=== PATIENT | female | born 1945 | race Caucasian/White ===

== ENCOUNTER 2018-06-02 07:42 | Observation (INO) ==
[2018-06-02] MEDS ORDERED: Mag Sulf 1 gm/100 ml Premix 100 ML IV.SIG ONE (07:45)
--- NOTE | 2018-06-02 07:55 | ED ---
HPI General Stated Complaint: SOB Source: patient Mode of arrival: ambulatory Limitations: no limitations History of Present Illness pcp mitzy.....patient c/o sob/cough prod of yellow green sputum over last 2 days, sob worsening and not responding to her home nebulizers, ems found patient with pulse ox 84% on room air....pulse ox increased to 99 with 2 breathing treatments and solumedrol 125mg iv. MD Complaint: shortness of breath and cough Onset (ago): day(s) (2) Context: other (worsening) Severity: moderate Consistency/Duration: constant Relieving factors: bronchodilators Exacerbating factors: nothing Known history of: COPD Associated symptoms: denies other symptoms Treatment prior to arrival: bronchodilator and other (ems provided solumedrol 125mg iv as well) Related Data Home oxygen amount: none Allergies Allergy/AdvReac Type Severity Reaction Status Date / Time No Known Allergies Allergy Uncoded 05/16/13 21:48 Review of Systems ROS: all other systems reviewed are negative PMFSH History History Provided By: Patient Social History Social History Recent Travel in [facility] within the Last 8 Weeks: No Recent Out of Country Travel within the Last 8 Weeks: No Exam Narrative Exam Narrative: GENERAL: Well-nourished, well-developed patient in no apparent distress. SKIN: Warm and dry. HEAD: Atraumatic. Normocephalic. EYES: Pupils equal and round. No scleral icterus. No injection or drainage. ENT: No nasal bleeding or discharge. Mucous membranes pink and moist. NECK: Trachea midline. No JVD. CARDIOVASCULAR: Tachycardic with regular rhythm. no rubs or gallops RESPIRATORY: Suprasternal accessory muscle use. Bilateral wheezing throughout , decreased tidal volume bilaterally GASTROINTESTINAL: Abdomen soft, non-tender, nondistended. No rebound or guarding MUSCULOSKELETAL: Extremities without clubbing, cyanosis, or edema. No obvious deformities. NEUROLOGICAL: Awake and alert. No obvious cranial nerve deficits. Motor grossly within normal limits. Five out of 5 muscle strength in the arms and legs. Normal speech. PSYCHIATRIC: Appropriate mood and affect; insight and judgment normal. Critical Care Time Critical Care Time: Yes Total Critical Care Time: 30 Attestation: Aggregate critical care time was 30 minutes. Time to perform other separately billable procedures was not included in the critical care time. My time did not include minutes spent treating any other patients simultaneously or on activities that did not directly contribute to the patient's treatment. The services I provided to this patient were to treat and/or prevent clinically significant deterioration such as intubation, respiratory failure and . I provided critical care services requiring my management, as noted below: Chart data review, documentation time, medication orders and management, vital sign assessments/reviewing monitor data, ordering and reviewing lab tests, ordering and interpreting/reviewing x-rays and diagnostic studies, care of the patient and discussion of the patient with the admitting physicians. Medical Decision Making MDM Narrative Medical Screen Exam Complete: Yes Emergency Medical Condition: Yes Differential Diagnosis Differential Diagnosis: Pneumonia versus pneumothorax versus pleural effusion versus COPD exacerbation versus STEMI Medical Records Medical records reviewed: Yes I reviewed the patient's medical records. Discharge Plan Discharge Disposition Patient Disposition: 30 Still Patient Discharge Condition Condition: Fair Discharge Details Diagnosis: Acute exacerbation of chronic obstructive pulmonary disease (COPD) Physicians Team ED Provider: Joseluis Rey Status ED Status: With Nurse
[2018-06-02 07:58] LABS: ABG Base Excess 0.7 mmol/L (-2-2); ABG PCO2 60 mmHg (38-42); ABG PO2 120 mmHg (61-120)
[2018-06-02 08:02] LABS: Baso # (Auto) 0.1 th/mm3 (0.0-0.2); Eos # (Auto) 0.8 th/mm3 (0.0-0.4); Eos % (Auto) 9.5 % (0.0-4.0); Hematocrit 42.8 % (35.0-46.0); Hemoglobin 13.5 gm/dL (11.6-15.3); Lymph # (Auto) 2.5 th/mm3 (1.0-4.8); Lymph % (Auto) 30.3 % (9.0-44.0); Mean Corpuscular HGB Conc 31.6 % (32.0-36.0); Mean Corpuscular Hemoglobin 29.5 pg (27.0-34.0); Mean Corpuscular Volume 93.2 fL (80.0-100.0); Mean Platelet Volume 8.3 fL (7.0-11.0); Mono # (Auto) 0.5 th/mm3 (0.0-0.9); Neut # (Auto) 4.5 th/mm3 (1.8-7.7); Neut % (Auto) 53.2 % (16.0-70.0); Platelet Count 245 th/mm3 (150-450); Red Blood Count 4.59 mil/mm3 (4.00-5.30); Red Cell Distribution Width 14.2 % (11.6-17.2); White Blood Count 8.4 th/mm3 (4.0-11.0)
[2018-06-02 08:07] LABS: Chloride 108 meq/L (98-107); Sodium 144 meq/L (136-145)
[2018-06-02 08:10] LABS: Albumin 3.5 g/dL (3.4-5.0); Anion Gap 6 meq/L (5-15); Calcium 8.4 mg/dL (8.5-10.1); Carbon Dioxide 29.8 meq/L (21.0-32.0); Glucose,Random 174 mg/dL (74-106)
[2018-06-02 08:11] LABS: Blood Urea Nitrogen 45 mg/dL (7-18)
[2018-06-02 08:13] LABS: Alanine Aminotransferase 18 U/L (10-53); Aspartate Aminotransferase 14 U/L (15-37)
[2018-06-02 08:14] LABS: Glomerular Filtration Rate 18 mL/min (>89)
[2018-06-02 08:15] LABS: Total Protein 8.4 g/dL (6.4-8.2)
[2018-06-02 08:16] LABS: Alkaline Phosphatase 100 U/L (45-117)
--- NOTE | 2018-06-02 08:24 | XR ---
EXAM DATE: 06/02/2018 8:09 AM EDT AGE/SEX: 72 years / Female INDICATIONS: Short of breath CLINICAL DATA: This is the patient's initial encounter. Patient reports that signs and symptoms have been present for 3 days and indicates a pain score of 0/10. MEDICAL/SURGICAL HISTORY: Chronic obstructive pulmonary disease. None. COMPARISON: No prior exams available for comparison. FINDINGS: A single AP view of the chest demonstrates the lungs to be symmetrically aerated without evidence of mass, infiltrate or effusion. The cardiomediastinal contours are unremarkable. Osseous structures a re intact. CONCLUSION: No acute cardiopulmonary disease. Electronically signed by: Lew Whitley MD 06/02/2018 8:23 AM EDT
[2018-06-02 08:35] LABS: Creatine Kinase 93 U/L (26-192)
[2018-06-02] MEDS ORDERED: Bisacodyl 10 MG Supp RECTAL PRN (10:32)
[2018-06-02] MEDS ORDERED: Acetaminophen 325 MG Tablet PO PRN (10:32)
[2018-06-02 10:43] LABS: ABG PCO2 54 mmHg (38-42); ABG PO2 70 mmHg (61-120)
[2018-06-02] MEDS ORDERED: Dextrose 50% in Water 50 ML Vial IV.PUSH PRN (12:28)
[2018-06-02] MEDS: MethylPREDNISolone Sod Succinate Inj 40 MG/ML Vial IV.PUSH SCH ×3 (12:41→22:46)
[2018-06-02] MEDS: Insulin NovoLOG Aspart Correctional Sugar Inj SQ SCH ×3 (13:40→22:45)
--- NOTE | 2018-06-02 14:25 | P.HP ---
History of Present Illness Primary Care Physician: Bernard Hill MD Chief Complaint: Shortness of breath and dyspnea History of Present Illness: 72-year-old female with known history of hypertension, hypovolemia, chronic obstructive pulmonary disease, diabetes, history of pulmonary emboli who presented the hospital because of worsening shortness of breath and dyspnea. Patient states that her symptoms started on Tuesday evening where she started developing shortness of breath, wheezing. She did use for nebulizer treatments with only minimal relief. Over the next couple days she progressively got worse where she cannot perform any activity due to her significant shortness of breath. Patient continued to have significant sputum production which was yellow in coloration. She did not contact her primary medical doctor's office because she states that they only tell her to go to the ER. Because her breathing got severely worse if she cannot function she came to the emergency department for evaluation. Patient was found to have acute hypercapnic respiratory failure was placed on BiPAP in the emergency department. Patient took the BiPAP off after approximate 1 hour she was not tolerating it well. And just 1 hour that she used it was correcting her hypercapnia. At time evaluating patient she was sitting up in the bed eating lunch. She states that she is feeling much better. According to respiratory therapy she did have some mild lethargy before BiPAP but after the use of the BiPAP her mentation improved. Patient denies any runny nose, fever, chills. Patient denies any exposure to any chemicals. - Diagnosis (1) Acute exacerbation of chronic obstructive pulmonary disease (COPD) (2) Acute hypercapnic respiratory failure Review of Systems All other systems reviewed negative except as stated in HPI Respiratory: Reports change in phlegm color, Reports shortness of breath, Reports shortness of breath with activity, Reports wheezing PMFSH - History History Provided By: Patient - Medical History Medical History: Medical History (Last Updated 06/02/18 @ 14:25 by CONNOR Sullivan) COPD (chronic obstructive pulmonary disease) Chronic kidney disease, stage IV (severe) Diabetes Hypertension Pulmonary embolism - Surgical History Surgical History: Surgical History (Last Updated 06/02/18 @ 14:19 by CONNOR Sullivan) No pertinent past surgical history - Family History Family History: Family History (Last Updated 06/02/18 @ 14:19 by CONNOR Sullivan) Mother History of heart disease Father History of heart disease - Tobacco History Second Hand Smoke Exposure: No Tobacco Use In Past 30 Days: No Smoking Status: Former smoker Number of Pack Years (if former smoker): 120 (Patient quit smoking in 2011) - Alcohol History How Often Do You Have a Drink Containing Alcohol: Monthly or less - Substance Use History Substance History: No History of Abuse - Travel History Recent Travel in the [place] Within the Last 8 Weeks: No Recent Travel Out of the Country Within the Last 8 Weeks: No - Immunization History Tetanus Immunization: Unsure Hx Influenza Vaccine This Season: No Medications and Allergies Active Medications: Active Medications Acetaminophen (Tylenol) 650 mg PO Q4H PRN PRN Reason: Fever, headache, pain 1-5 Al Hydroxide/Mg Hydroxide (Milk Of Magnesia Liq) 30 ml PO Q12H PRN PRN Reason: Mild Constipation Albuterol (Duoneb Neb (Renee)) 1 ampul NEB Q6HR WHILE AWAKE NEB RENEE Albuterol (Duoneb Neb (Prn)) 1 ampul NEB Q2HR NEB PRN PRN Reason: DYSPNEA Bisacodyl (Dulcolax Supp) 10 mg RECTAL DAILY PRN PRN Reason: SEVERE CONSITIPATION Budesonide/Formoterol Fumarate (Symbicort 160/4.5 Mcg Inh) 1 puff INH BID RENEE Dextrose (D50w Vial) 50 ml IV.PUSH UNSCH PRN PRN Reason: PER HYPOGLYCEMIA PROTOCOL Glucagon (Glucagon Inj) 1 mg OTHER PRN PRN PRN Reason: for Hypoglycemia Protocol Guaifenesin (Mucinex Er) 600 mg PO BID RENEE Levofloxacin/Dextrose (Levaquin 750 Mg Premix Inj) 150 mls @ 100 mls/hr IV.SIG Q48H [facility] Last Infusion: 06/02/18 13:38 Dose: Infused Insulin Aspart (Novolog Insulin Correctional Sugar Inj) 0 unit SQ ACHS RENEE; Protocol Last Admin: 06/02/18 13:40 Dose: 3 unit Insulin Detemir (Levemir Inj) 10 unit SQ HS RENEE Lactulose (Lactulose Liq) 30 ml PO DAILY PRN PRN Reason: SEVERE CONSITIPATION Methylprednisolone Sodium Succinate (Solumedrol Inj) 40 mg IV.PUSH Q6H RENEE Last Admin: 06/02/18 12:41 Dose: 40 mg Sennosides (Senokot) 17.2 mg PO Q12H PRN PRN Reason: Moderate Constipation Allergies Allergy/AdvReac Type Severity Reaction Status Date / Time No Known Allergies Allergy Unverified 06/02/18 07:59 Home Medications Medication Instructions Recorded Confirmed Type budesonide 0.5 mg INHALATION Q12H 06/02/18 06/02/18 History furosemide 20 mg PO DAILY 06/02/18 06/02/18 History insulin glargine [Basaglar KwikPen 13 unit SUB-Q DAILY 06/02/18 06/02/18 History U-100 Insulin] ipratropium-albuterol 3 ml INHALATION QID 06/02/18 06/02/18 History warfarin See Label Instructions .ROUTE 06/02/18 06/02/18 History .COMPLEX warfarin See Label Instructions .ROUTE 06/02/18 06/02/18 History .COMPLEX Exam Vital signs: Vital Signs 06/02/18 07:49 06/02/18 08:00 06/02/18 08:02 Temperature 98.0 F Pulse Rate 128 H 122 H Respiratory Rate 22 Blood Pressure 149/81 H Pulse Oximetry 99 98 99 06/02/18 08:18 06/02/18 09:44 06/02/18 09:45 Temperature Pulse Rate 118 H Respiratory Rate 20 Blood Pressure 142/60 H Pulse Oximetry 100 94 L 94 L 06/02/18 10:43 06/02/18 11:24 Temperature Pulse Rate 106 H 112 H Respiratory Rate 20 20 Blood Pressure 123/61 Pulse Oximetry 95 Intake & Output 06/01/18 06/02/18 06/02/18 18:59 06:59 18:59 Intake Total 250 / 250 Balance 250 / 250 Weight 77.111 kg Intake: IV 250 / 250 Levaquin 750 mg Premix Inj 150 150 / 150 ML @ 100 mls/hr IV.SIG Q48H RENEE Rx#:[id number] Magnesium Sulfate 1 gm/D5W 100 100 / 100 ml Premix 100 ML @ 100 mls/hr IV.SIG ONCE ONE Rx#:[id number] Narrative: GENERAL: Well-developed, well-nourished, in no acute distress. alert and orientated HEENT: Head is normocephalic without any lesions or masses noted. Facial features are symmetric. Eyes: Pupils equal round reactive to light. Extraocular muscles are intact. Conjunctivae were clear. Oropharyngeal: Pharynx without any erythema edema. Tongue is midline without deviation. Buccal mucosa is moist without any masses or lesions NECK: Supple without any masses. Trachea midline no deviation. No JVD, no bruits are appreciated CARDIAC: Regular rhythm, regular rate. S1/S2 are heard. No murmurs gallops or rubs. LUNGS: Clear to auscultation bilaterally. Scattered wheezes noted throughout bilateral lung baig, no rhonchi or rales. No use of accessory muscles on inspiration or expiration. ABDOMEN: Soft, nontender. Nondistended. Bowel sounds heard in all 4 quadrants. No organomegaly or masses. Negative rebound, negative guarding EXTREMITIES: No edema, pulses are equal bilaterally. No cyanosis or clubbing NEUROLOGY: Mood and affect appear appropriate. Cranial nerves II through XII grossly intact. Muscle strength 5/5 in upper and lower extremities bilaterally. Deep tendon reflexes are 2+ in upper and lower extremities bilaterally. Results - Labs CBC & Chem 7: 06/02/18 07:50 06/02/18 07:50 Labs: Laboratory Results - last 24 hr 06/02/18 06/02/18 06/02/18 07:45 07:50 07:50 CBC w Diff Auto diff final WBC 8.4 RBC 4.59 Hgb 13.5 Hct 42.8 MCV 93.2 MCH 29.5 MCHC 31.6 L RDW 14.2 Plt Count 245 MPV 8.3 Neut % (Auto) 53.2 Lymph % (Auto) 30.3 Coryell % (Auto) 6.0 Eos % (Auto) 9.5 H Baso % (Auto) 1.0 Neut # (Auto) 4.5 Lymph # (Auto) 2.5 [place]ell # (Auto) 0.5 Eos # (Auto) 0.8 H Baso # (Auto) 0.1 WBC Differential . Differential Comment . Puncture Site Left brachial Patient Temperature 98.6 O2 Saturation 96 ABG pH 7.27 L* ABG pCO2 60 H* ABG pO2 120 ABG HCO3 27 H ABG O2 Content 18.2 ABG Base Excess 0.7 ABG Methemoglobin 1.2 Jean Claude Test Y Hemoglobin 13.3 Carboxyhemoglobin 1.1 O2 Delivery Device Nasal cannula Liter Flow 3.00 Inspired O2 21 Critical Value Yes Sodium 144 Potassium 4.0 Chloride 108 H Carbon Dioxide 29.8 Anion Gap 6 BUN 45 H Creatinine 2.60 H Estimated GFR 18 L POC Glucose Random Glucose 174 H Calcium 8.4 L Total Bilirubin 0.3 AST 14 L ALT 18 Alkaline Phosphatase 100 Total Creatine Kinase 93 Troponin I Less than 0.02 L B-Natriuretic Peptide Total Protein 8.4 H Albumin 3.5 06/02/18 06/02/18 06/02/18 07:50 10:40 12:13 CBC w Diff WBC RBC Hgb Hct MCV MCH MCHC RDW Plt Count MPV Neut % (Auto) Lymph % (Auto) [place] % (Auto) Eos % (Auto) Baso % (Auto) Neut # (Auto) Lymph # (Auto) [place] # (Auto) Eos # (Auto) Baso # (Auto) WBC Differential Differential Comment Puncture Site Left brachial Patient Temperature 98.6 O2 Saturation 92 ABG pH 7.31 L ABG pCO2 54 H* ABG pO2 70 ABG HCO3 27 H ABG O2 Content 16.9 ABG Base Excess 1.0 ABG Methemoglobin 1.2 Jean Claude Test Hemoglobin 13.0 Carboxyhemoglobin 1.2 O2 Delivery Device Nasal cannula Liter Flow 1.00 Inspired O2 Critical Value Yes Sodium Potassium Chloride Carbon Dioxide Anion Gap BUN Creatinine Estimated GFR POC Glucose 238 H Random Glucose Calcium Total Bilirubin AST ALT Alkaline Phosphatase Total Creatine Kinase Troponin I B-Natriuretic Peptide 31 Total Protein Albumin - Imaging Impressions Chest X-Ray 06/02/18 07:45 CONCLUSION: No acute cardiopulmonary disease. Caprini VTE Risk Assessment Caprini VTE Risk Assessment: Moderate/High Risk (score >= 2) Caprini Risk Assessment Model: Point Value = 1 Point Value = 2 Point Value = 3 Point Value = 5 Age 41-60 Minor surgery BMI > 25 kg/m2 Swollen legs Varicose veins or History of unexplained or recurrent spontaneous Oral contraceptives or hormone replacement Sepsis (< 1 month) Serious lung disease, including pneumonia (< 1 month) Abnormal pulmonary function Acute myocardial infarction Congestive heart failure (< 1 month) History of inflammatory bowel disease Medical patient at bed rest Age 61-74 Arthroscopic surgery Major open surgery (> 45 min) Laparoscopic surgery (> 45 min) Malignancy Confined to bed (> 72 hours) Immobilizing plaster cast Central venous access Age >= 75 History of VTE Family history of VTE Factor V Leiden Prothrombin [id number] Lupus anticoagulant Anticardiolipin antibodies Elevated serum homocysteine Heparin-induced thrombocytopenia Other congenital or acquired thrombophilia Stroke (< 1 month) Elective arthroplasty Hip, pelvis, or leg fracture Acute spinal cord injury (< 1 month) Prophylaxis Regimen: Total Risk Factor Score Risk Level Prophylaxis Regimen 0-1 Low Early ambulation 2 Moderate Order ONE of the following: *Sequential Compression Device (SCD) *Heparin 5000 units SQ BID 3-4 Higher Order ONE of the following medications: *Heparin 5000 units SQ TID *Enoxaparin/Lovenox 40 mg SQ daily (WT < 150 kg, CrCl > 30 mL/min) *Enoxaparin/Lovenox 30 mg SQ daily (WT < 150 kg, CrCl > 10-29 mL/min) *Enoxaparin/Lovenox 30 mg SQ BID (WT < 150 kg, CrCl > 30 mL/min) AND/OR *Sequential Compression Device (SCD) 5 or more Highest Order ONE of the following medications: *Heparin 5000 units SQ TID (Preferred with Epidurals) *Enoxaparin/Lovenox 40 mg SQ daily (WT < 150 kg, CrCl > 30 mL/min) *Enoxaparin/Lovenox 30 mg SQ daily (WT < 150 kg, CrCl > 10-29 mL/min) *Enoxaparin/Lovenox 30 mg SQ BID (WT < 150 kg, CrCl > 30 mL/min) AND *Sequential Compression Device (SCD) Assessment and Plan - Assessment (1) Acute exacerbation of chronic obstructive pulmonary disease (COPD) Code(s): J44.1 - Chronic obstructive pulmonary disease with (acute) exacerbation Status: Acute (2) Acute hypercapnic respiratory failure Code(s): J96.02 - Acute respiratory failure with hypercapnia Status: Acute - Plan Acute hypercapnic respiratory failure secondary to chronic obstructive pulmonary disease exacerbation. -Blood gas does indicate initial pH 7.27, PCO2 60, PO2 120, bicarb 27, O2 saturation 96 -Blood gas did show improvement after 1 hour of BiPAP -Would recommend continuation of BiPAP, 09/06/35 percent for at least another 3- 4 hours -Awaiting VQ scan -Continue Levaquin 750 mg every 48 hours -Continue Solu-Medrol 40 mg IV every 6 hours -Continue nebulizer every 6 hours while awake and every 2 hours as needed -Start budesonide 1 inhalation twice daily -Start guaifenesin 600 mg twice daily -Obtain sputum culture, influenza testing, pro-calcitonin level Diabetes -Diabetic diet -Accu-Cheks with sliding scale insulin Chronic kidney disease stage IV -Patient does have history of dialysis -Continue monitor renal function -Avoid nephrotoxins hypertension, history of pulmonary emboli -Patient is currently on Coumadin -We will need to obtain PT/INR in order to evaluate if patient is therapeutic -Continue home medications DVT prevention -Patient is on Coumadin, awaiting INR
--- NOTE | 2018-06-02 14:31 | NM ---
EXAM DATE: 06/02/2018 2:25 PM EDT AGE/SEX: 72 years / Female INDICATIONS: Dyspnea for one day. CLINICAL DATA: This is the patient's initial encounter. Patient reports that signs and symptoms have been present for 1 day and indicates a pain score of 0/10. MEDICAL/SURGICAL HISTORY: Chronic obstructive pulmonary disease. Diabetes mellitus type II. Hi story of pulmonary embolus. . IVC filter. COMPARISON: No prior exams available for comparison. DOSE: 1.0 mCi Tc99m DTPA aerosol 8.5 mCi Tc99m MAA IV TECHNIQUE: Following five minutes of tidal breathing of DTPA aerosol, planar images of the lungs wer e performed in eight projections. The patient was then injected with MAA, and eight-view perfusion s can was performed. FINDINGS: There is matched subsegmental defects in the right lower lobe. The remainder of examination is unrema rkable. CONCLUSION: 1. Low probability of pulmonary embolism Electronically signed by: Lew Whitley MD 06/02/2018 2:29 PM EDT
[2018-06-02] MEDS: Budesonide-Formoterol 160/4.5 MCG 6 GM Inhaler INH SCH ×2 (14:52→22:46)
[2018-06-02] MEDS: guaiFENesin 600 MG ER Tablet PO SCH ×2 (14:52→22:45)
[2018-06-02 15:07] LABS: Activated Partial Thrombo Time 39.7 sec (24.3-30.1); INR 1.8 Ratio; Prothrombin Time 17.8 sec (9.8-11.6)
[2018-06-02] MEDS ORDERED: Insulin Detemir Inj 1,000 UNIT/10 ML Vial SQ SCH (21:00)
[2018-06-03] MEDS: MethylPREDNISolone Sod Succinate Inj 40 MG/ML Vial IV.PUSH SCH (06:12)
[2018-06-03 08:07] LABS: Baso % (Auto) 0.1 % (0.0-2.0); Hematocrit 40.1 % (35.0-46.0); Hemoglobin 13.1 gm/dL (11.6-15.3); Lymph # (Auto) 0.7 th/mm3 (1.0-4.8); Mean Corpuscular HGB Conc 32.6 % (32.0-36.0); Mean Corpuscular Hemoglobin 29.4 pg (27.0-34.0); Mean Corpuscular Volume 90.2 fL (80.0-100.0); Mean Platelet Volume 9.2 fL (7.0-11.0); Mono # (Auto) 0.2 th/mm3 (0.0-0.9); Mono % (Auto) 1.7 % (0.0-8.0); Neut # (Auto) 13.8 th/mm3 (1.8-7.7); Neut % (Auto) 93.2 % (16.0-70.0); Platelet Count 268 th/mm3 (150-450); Red Blood Count 4.44 mil/mm3 (4.00-5.30); White Blood Count 14.6 th/mm3 (4.0-11.0)
--- NOTE | 2018-06-03 08:12 | P.PN ---
Subjective Interval history: 72-year-old female who is seen and examined today for follow-up on acute hypercapnic respiratory failure, COPD exacerbation. Patient states that she is doing much better. She did not get much sleep last night. However she does feel much improved with her respiratory status. Apparently she does follow with Dr. Benavides, nurse plastics and anticipates make an appointment with him for a sleep study in order to evaluate for sleep apnea. Patient wants to go home at this time. She indicates that she feels if she is good enough to go home she is no longer experiencing the significant shortness of breath that she did that caused her to present to the hospital. Vital signs are stable. Patient remains afebrile. Physical Exam Vital signs: Vital Signs 06/02/18 08:18 06/02/18 09:44 06/02/18 09:45 Temperature Pulse Rate 118 H Respiratory Rate 20 Blood Pressure 142/60 H Pulse Oximetry 100 94 L 94 L 06/02/18 10:43 06/02/18 11:24 06/02/18 12:00 Temperature 97.8 F Pulse Rate 106 H 112 H 114 H Respiratory Rate 20 20 18 Blood Pressure 123/61 118/55 L Pulse Oximetry 95 96 06/02/18 14:37 06/02/18 16:00 06/02/18 17:05 Temperature 97.7 F Pulse Rate 115 H 114 H Respiratory Rate 24 18 Blood Pressure 117/54 L Pulse Oximetry 96 94 L 06/02/18 19:40 06/02/18 20:00 06/03/18 00:00 Temperature 97.5 F L 97.0 F L Pulse Rate 121 H 119 H 98 H Respiratory Rate 22 21 18 Blood Pressure 141/64 H 140/84 Pulse Oximetry 96 95 95 06/03/18 03:31 06/03/18 03:50 06/03/18 07:38 Temperature Pulse Rate 108 H 110 H Respiratory Rate 18 20 Blood Pressure Pulse Oximetry 97 95 Intake & Output 06/02/18 06/03/18 06/03/18 18:59 06:59 18:59 Intake Total 750 / 750 600 / 600 Output Total 950 / 950 Balance 750 / 750 -350 / -350 Weight 77.111 kg 81.8 kg Intake: IV 250 / 250 Levaquin 750 mg Premix Inj 150 150 / 150 ML @ 100 mls/hr IV.SIG Q48H ERIK Rx#:[id number] Magnesium Sulfate 1 gm/D5W 100 100 / 100 ml Premix 100 ML @ 100 mls/hr IV.SIG ONCE ONE Rx#:[id number] Oral 500 / 500 600 / 600 Output: Urine 450 / 450 Urine Amount (Catheter) 500 / 500 Indwelling Urethral Catheter 500 / 500 Other: # Bowel Movements 2 Narrative: GENERAL: Well-developed, well-nourished, in no acute distress. alert and orientated HEENT: Head is normocephalic without any lesions or masses noted. Facial features are symmetric. Eyes: Extraocular muscles are intact. Conjunctivae were clear. NECK: Supple without any masses. Trachea midline no deviation. No JVD, CARDIAC: Regular rhythm, regular rate. S1/S2 are heard. No murmurs gallops or rubs. LUNGS: Diminished breath sounds noted throughout, no wheeze, rhonchi or rales. No use of accessory muscles on inspiration or expiration. ABDOMEN: Soft, nontender. Nondistended. Bowel sounds heard in all 4 quadrants. No organomegaly or masses. Negative rebound, negative guarding EXTREMITIES: No edema, pulses are equal bilaterally. No cyanosis or clubbing NEUROLOGY: Mood and affect appear appropriate. Cranial nerves II through XII grossly intact. Moving all extremities, speech is clear - Urinary Catheter Management Indwelling Urethral Catheter Cath placed during this visit: yes Reason for continuing: Other continuation reason Insertion date: 06/02/18 Insertion time: 08:40 Results - Labs CBC & Chem 7: 06/03/18 07:25 06/03/18 07:25 Laboratory Results - last 24 hr 06/02/18 06/02/18 06/02/18 07:50 07:50 10:40 PT INR APTT Puncture Site Left brachial Patient Temperature 98.6 O2 Saturation 92 ABG pH 7.31 L ABG pCO2 54 H* ABG pO2 70 ABG HCO3 27 H ABG O2 Content 16.9 ABG Base Excess 1.0 ABG Methemoglobin 1.2 Hemoglobin 13.0 Carboxyhemoglobin 1.2 O2 Delivery Device Nasal cannula Liter Flow 1.00 Critical Value Yes Sodium 144 Potassium 4.0 Chloride 108 H Carbon Dioxide 29.8 Anion Gap 6 BUN 45 H Creatinine 2.60 H Estimated GFR 18 L POC Glucose Random Glucose 174 H Calcium 8.4 L Total Bilirubin 0.3 AST 14 L ALT 18 Alkaline Phosphatase 100 Total Creatine Kinase 93 Troponin I Less than 0.02 L B-Natriuretic Peptide 31 Total Protein 8.4 H Albumin 3.5 06/02/18 06/02/18 06/02/18 12:13 14:40 16:45 PT 17.8 H INR 1.8 APTT 39.7 H Puncture Site Patient Temperature O2 Saturation ABG pH ABG pCO2 ABG pO2 ABG HCO3 ABG O2 Content ABG Base Excess ABG Methemoglobin Hemoglobin Carboxyhemoglobin O2 Delivery Device Liter Flow Critical Value Sodium Potassium Chloride Carbon Dioxide Anion Gap BUN Creatinine Estimated GFR POC Glucose 238 H 228 H Random Glucose Calcium Total Bilirubin AST ALT Alkaline Phosphatase Total Creatine Kinase Troponin I B-Natriuretic Peptide Total Protein Albumin 06/02/18 06/03/18 22:22 07:44 PT INR APTT Puncture Site Patient Temperature O2 Saturation ABG pH ABG pCO2 ABG pO2 ABG HCO3 ABG O2 Content ABG Base Excess ABG Methemoglobin Hemoglobin Carboxyhemoglobin O2 Delivery Device Liter Flow Critical Value Sodium Potassium Chloride Carbon Dioxide Anion Gap BUN Creatinine Estimated GFR POC Glucose 240 H 290 H Random Glucose Calcium Total Bilirubin AST ALT Alkaline Phosphatase Total Creatine Kinase Troponin I B-Natriuretic Peptide Total Protein Albumin Microbiology 06/02/18 14:43 Nasal Wash Influenza Types A,B Antigen - Final Negative for FLU A and B antigen Infection due to influenza A or B cannot be ruled out since the antigen present in the sample may be below the detection limit of the test. - Imaging Impressions Pulmonary Perfusion Imaging 06/02/18 00:00 CONCLUSION: 1. Low probability of pulmonary embolism Chest X-Ray 06/02/18 07:45 CONCLUSION: No acute cardiopulmonary disease. Assessment and Plan - Assessment (1) Acute exacerbation of chronic obstructive pulmonary disease (COPD) Code(s): J44.1 - Chronic obstructive pulmonary disease with (acute) exacerbation Status: Acute (2) Acute hypercapnic respiratory failure Code(s): J96.02 - Acute respiratory failure with hypercapnia Status: Acute - Plan Acute hypercapnic respiratory failure secondary to chronic obstructive pulmonary disease exacerbation. -Blood gas does indicate initial pH 7.27, PCO2 60, PO2 120, bicarb 27, O2 saturation 96 -Blood gas did show improvement after 1 hour of BiPAP -VQ scan indicated low probability for pulmonary emboli -Continue Levaquin 750 mg every 48 hours -Continue Solu-Medrol 40 mg IV every 6 hours -Continue nebulizer every 6 hours while awake and every 2 hours as needed -Continue budesonide 1 inhalation twice daily -Continue guaifenesin 600 mg twice daily -Influenza testing was negative -Awaiting sputum culture and pro calcitonin level -Walk study was performed and patient does not require any home oxygen -Patient states that she is going to follow-up with Dr. Benavides, pulmonology for further management and sleep study Diabetes -Diabetic diet -Accu-Cheks with sliding scale insulin Chronic kidney disease stage IV -Patient does have history of dialysis -Continue monitor renal function -Avoid nephrotoxins hypertension, history of pulmonary emboli -Patient is currently on Coumadin -INR 1.9 -Continue home medications DVT prevention -Patient is on Coumadin Discharge Planning: Discharge home in stable condition Activity: Ad salena. Diet: Healthy heart diet Medication per medication reconciliation Follow-up with primary medical doctor in 1 week
[2018-06-03 08:15] LABS: Potassium 4.4 meq/L (3.5-5.1)
[2018-06-03 08:18] LABS: Calcium 8.8 mg/dL (8.5-10.1); Carbon Dioxide 26.6 meq/L (21.0-32.0)
[2018-06-03] MEDS: Insulin NovoLOG Aspart Correctional Sugar Inj SQ SCH (08:27)
[2018-06-03] MEDS: guaiFENesin 600 MG ER Tablet PO SCH (08:28)
[2018-06-03 08:42] VITALS: BP 131/72; PULSE 119; RESP 18; TEMP 96.8
[2018-06-03] MEDS ORDERED: Furosemide 20 MG Tablet PO SCH (09:00)
[2018-06-03 09:10] VITALS: O2SAT 96
[2018-06-03] MEDS: Budesonide-Formoterol 160/4.5 MCG 6 GM Inhaler INH SCH (10:46)
== END 2018-06-03 11:01 | disposition home or self-care (01) ==
LOC: PHED 07:42 → PHEDA 07:42 → PH3 11:56
PROVIDERS: ADMIT Hospitalist; ATTEND Hospitalist